=== PATIENT | female | born 1970 | race Caucasian/White ===

== ENCOUNTER 2016-09-21 07:23 | Day surgery (SDC) | payer OTHER ==
[2016-09-11 14:54] VITALS: BMI 36.8
[2016-09-21] MEDS ORDERED: SCOPOLAMINE HYDROBROMIDE 1 PATCH PATCH.TD72 ONE (08:55)
[2016-09-21] MEDS ORDERED: ONDANSETRON 4 MG/2 ML VIAL ONE ×2 (08:55→10:41)
[2016-09-21] MEDS ORDERED: DEXAMETHASONE SOD PHOSPHATE 4 MG/1 ML VIAL ONE (08:55)
[2016-09-21] MEDS ORDERED: MIDAZOLAM HCL 2 MG/2 ML SINGLE DOSE VIAL ONE (08:56)
[2016-09-21] MEDS ORDERED: PROPOFOL 20 ML ONE ×2 (08:59)
[2016-09-21] MEDS ORDERED: LIDOCAINE HCL/PF 2% SDV 5ML VIAL ONE (09:09)
[2016-09-21] MEDS ORDERED: SUCCINYLCHOLINE CHLORIDE 200 MG/10 ML VIAL ONE (09:09)
[2016-09-21] MEDS ORDERED: LIDOCAINE HCL 2% JELLY (5 ML/TUBE) ONE (09:09)
[2016-09-21] MEDS ORDERED: IBUPROFEN 600 MG TABLET (FP) PO PRN (10:01)
[2016-09-21] MEDS ORDERED: ONDANSETRON 4 MG/2 ML VIAL IVPUSH PRN (10:01)
[2016-09-21] MEDS ORDERED: LACTATED RINGERS SOLUTION 1,000 ML IV SCH (10:15)
[2016-09-21] MEDS ORDERED: oxyCODONE HCL 5 MG TABLET PO PRN (10:40)
[2016-09-21 11:19] VITALS: TEMP 98.1
[2016-09-21 12:35] VITALS: PULSE 66
[2016-09-21 12:36] VITALS: BP 116/62
--- NOTE | 2016-09-22 10:43 | OP ---
DATE OF OPERATION: 09/21/2016 PROCEDURES: Hysteroscopy. Polypectomy. dilation and curettage. PREOPERATIVE DIAGNOSIS: A 45-year-old, 0, with abnormal uterine bleeding likely due to polyp found on sonographic hysterography. ATTENDING: Winnie Thorpe MD FELLOW: Juan Turner. RESIDENT: Orestes Phillips. ANESTHESIA: Dr. Stovall COMPLICATIONS: There were no complications. URINE OUTPUT: 350 mL. FLUID DEFICIT: 640 mL. ESTIMATED BLOOD LOSS: 10 mL. DESCRIPTION OF PROCEDURE: The patient was counseled on the risks, benefits and alternatives for the procedure, signed the consent with a witness present, and agreed to the procedure. The patient was then taken back to the operating room where she was placed on the operating table and induced into general anesthesia using an LMA without difficulty by Anesthesia. The patient was then placed in the dorsal lithotomy position and prepped and draped in the usual sterile fashion. A Mims catheter was then placed with good return on clear urine and left in place during the entire procedure. Examination under anesthesia revealed a retroverted, 8-week uterus. A speculum was then used to visualize the cervix with the tenaculum placed on the anterior lip of the cervix. A diagnostic hysteroscope was then inserted without difficulty into the uterine cavity and was found to see a polypoid endometrium and with a small, less than 1-cm polyp protruding from the right ostia. The hysteroscope was then removed from the uterine cavity and a sharp curette was then inserted and used to perform gentle curettage through the entire uterine cavity which was then removed and specimen was sent to Pathology. A 12-degree operative scope was then inserted into the uterine cavity and the polyp tissue in the right ostia was noted to still be present. Hysteroscopic forceps were then inserted and used to grasp the polyp. Then, with a twisting motion, we were able to remove most of the polyp. The hysteroscopic scissors were then inserted and used to excise the remaining polyp. Images were taken before and after this procedure. The hysteroscope was then taken and a gentle, sharp curettage was then performed. Then, all instruments were removed from the vagina. The tenaculum was removed and the tenaculum sites were noted to be hemostatic. Laparotomy and instrument counts were correct x2. Again, the procedure was without complications. Orestes Phillips, resident, dictating for MD WINNIE Vazquez M.D. [id number] MTDD
--- NOTE | 2016-09-26 11:19 | PATH ---
Surgical Pathology Report Patient Name: NILDA SUGGS [facility]. Rec. #: [id number] /Age/Gender: 1970 (Age: 45) / F Account: [id number] Location: [facility] AMBULATORY Taken: 09/21/2016 Received: 09/21/2016 Reported: 09/24/2016 Physicians: Winnie Thorpe Specimen(s) Received ENDOMETRIAL CURETTINGS Clinical History Abnormal uterine bleeding, polyps Final Diagnosis ENDOMETRIUM, CURETTING: PROLIFERATIVE ENDOMETRIUM WITH AREAS OF STROMAL AND GLANDULAR BREAKDOWN. NO ENDOMETRIAL HYPERPLASIA OR CARCINOMA IDENTIFIED. Electronically Signed Yamil Aleman M.D. Gross Description Received in formalin labeled "endometrial curettings," is a 2.0 x 1.3 x 0.3 cm aggregate of arreola-brown soft tissue fragments. The formalin is filtered and the specimen is entirely submitted in one cassette. /09/21/2016 saudi/09/21/2016
== END 2016-09-21 12:37 | disposition home or self-care (01) ==
LOC: FASU 07:23
PROVIDERS: ATTEND Obstetrics & Gynecology Reproductive Endocrinology
PROC: 0UDB8ZX Extraction of Endometrium, Via Natural or Artificial Opening Endoscopic, Diagnostic (ICD-10-PCS; 2016-09-21)
PROC: 0UB98ZX Excision of Uterus, Via Natural or Artificial Opening Endoscopic, Diagnostic (ICD-10-PCS; principal; 2016-09-21 09:19)
DX: N84.0 Polyp of corpus uteri (principal)
CPT/HCPCS: 84703; 88305-TC; 94760